=== PATIENT | female | born 1985 | race Caucasian/White ===

== ENCOUNTER 2016-06-15 05:33 | Day surgery (SDC) | payer OTHER ==
[~2016-06-15 05:33] MED LIST: OXYCODONE/APAP 5/325 TAB PO PRN
[2016-06-15] MEDS ORDERED: LIDOCAINE 1% 2 ML INJ ONE (05:48)
[2016-06-15] MEDS ORDERED: SCOPOLAMINE HYDROBROMIDE 1.5 MG PATCH TD ONE (06:00)
[2016-06-15] MEDS ORDERED: LR 1,000 ML IV ONE (06:19)
[2016-06-15] MEDS ORDERED: LIDOCAINE 1% 5 ML SDV ID PRN (06:19)
[2016-06-15] MEDS ORDERED: EPINEPHrine 30 MG/30 ML MDV ONE (06:55)
[2016-06-15] MEDS ORDERED: BUPIVACAINE/EPI 0.25% 30 ML SDV ONE (06:55)
[2016-06-15] MEDS ORDERED: PREGABALIN 150 MG CAP PO ONE (07:00)
[2016-06-15] MEDS ORDERED: CLINDAMYCIN 900 MG/DEXTROSE 50 ML IV ONE (07:00)
[2016-06-15] MEDS ORDERED: ACETAMINOPHEN 500 MG TAB PO ONE (07:00)
[2016-06-15] MEDS ORDERED: fentaNYL 250 MCG/5 ML INJ ONE (07:07)
[2016-06-15] MEDS ORDERED: PROPOFOL 200 MG/20 ML VIAL ONE ×2 (07:08)
[2016-06-15] MEDS ORDERED: MIDAZOLAM 2 MG/2 ML VIAL ONE (07:15)
[2016-06-15] MEDS ORDERED: HYDROmorphONE/DILAUDID 1 MG/ML SYR ONE (10:26)
[2016-06-15] MEDS ORDERED: fentaNYL 100 MCG/2 ML INJ ONE (10:26)
== END 2016-06-15 12:46 | disposition home or self-care (01) ==
LOC: FSGY 05:33
PROVIDERS: ATTEND Orthopaedic Surgery Sports Medicine
PROC: 0SQB4ZZ Repair Left Hip Joint, Percutaneous Endoscopic Approach (ICD-10-PCS; principal; 2016-06-15 07:15)
DX: M25.852 Other specified joint disorders, left hip (principal); M94.252 Chondromalacia, left hip
CPT/HCPCS: C1713; J1170; J2250; J2704; J3010